=== PATIENT | female | born 1960 | race American Indian/Alaskan Native ===

== ENCOUNTER 2017-09-27 13:55 | Emergency (ER) | payer SELFPAY ==
[2017-09-27 14:11] VITALS: BMI 26.6
[2017-09-27 14:14] VITALS: BP 156/99; PULSE 110; RESP 18; TEMP 98.9; O2SAT 100
--- NOTE | 2017-09-27 14:43 | ED PDOC ---
Arrival/HPI - General Chief Complaint: ENT Problem Time Seen by Provider: 09/27/17 14:30 Historian: Patient - History of Present Illness Narrative History of Present Illness (Text): 09/27/17 Thuy Guevara is a 57 year old female, who presents to the emergency department complaining of sinus congestion for the past four days. Patient denies fever, chest pain, shortness of breath, or cough. No other complaints were made. Time/Duration: < week (4 days) Symptom Onset: Sudden Symptom Course: Unchanged Past Medical History - Provider Review Nursing Documentation Reviewed: Yes - Infectious Disease Hx of Infectious Diseases: None - Reproductive Menopause: No - Psychiatric Hx Substance Use: No - Anesthesia Hx Anesthesia: No Family/Social History - Physician Review Nursing Documentation Reviewed: Yes Family/Social History: Unknown Family HX Smoking Status: Unknown If Ever Smoked Hx Alcohol Use: No Hx Substance Use: No Allergies/Home Meds Allergies/Adverse Reactions: Allergies Sulfa (Sulfonamide Antibiotics) Allergy (Verified 09/27/17 14:14) RASH Review of Systems - Physician Review All systems were reviewed & negative as marked: Yes - Review of Systems Constitutional: absent: Fevers ENT: Sinus Congestion Respiratory: absent: SOB, Cough Cardiovascular: absent: Chest Pain Physical Exam Vital Signs Reviewed: Yes Vital Signs Temp Pulse Resp BP Pulse Ox 09/27/17 14:10 98.9 F 110 H 18 156/99 H 100 09/27/17 13:55 98.9 F 110 H 18 100 Temperature: Afebrile Blood Pressure: Normal Pulse: Tachycardic Respiratory Rate: Normal Appearance: Positive for: Well-Appearing, Non-Toxic, Comfortable Pain Distress: None Mental Status: Positive for: Alert and Oriented X 3 - Systems Exam Head: Present: Atraumatic, Normocephalic Pupils: Present: PERRL Extroacular Muscles: Present: EOMI Conjunctiva: Present: Normal Mouth: Present: Other (bilateral maxillofacial tenderness) Respiratory/Chest: Present: Clear to Auscultation, Good Air Exchange. No: Respiratory Distress, Accessory Muscle Use Cardiovascular: Present: Regular Rate and Rhythm, Normal S1, S2. No: Murmurs Abdomen: Present: Normal Bowel Sounds. No: Tenderness, Distention, Peritoneal Signs Neurological: Present: GCS=15, CN II-XII Intact, Speech Normal Skin: Present: Warm, Dry, Normal Color. No: Rashes Psychiatric: Present: Alert, Oriented x 3, Normal Insight, Normal Concentration Medical Decision Making ED Course and Treatment: 09/27/17 Impression: 57 year old female with bilateral maxillofacial tenderness. Plan: -- Reassess and disposition Progress Notes: Plan is to discharge patient home and have her follow up with PMD. - Scribe Statement The provider has reviewed the documentation as recorded by the Charlotteibe Minda Orozco Provider Scribe Attestation: All medical record entries made by the Scribe were at my direction and personally dictated by me. I have reviewed the chart and agree that the record accurately reflects my personal performance of the history, physical exam, medical decision making, and the department course for this patient. I have also personally directed, reviewed, and agree with the discharge instructions and disposition. Disposition/Present on Arrival - Present on Arrival Any Indicators Present on Arrival: No History of DVT/PE: No History of Uncontrolled Diabetes: No Urinary Catheter: No History of Decub. Ulcer: No History Surgical Site Infection Following: None - Disposition Have Diagnosis and Disposition been Completed?: Yes Diagnosis: Sinusitis Disposition: HOME/ ROUTINE Disposition Time: 14:25 Condition: GOOD Discharge Instructions (ExitCare): Sinusitis (ED) Additional Instructions: Thank you for letting us take care of you today. The emergency medical care you received today was directed at your acute symptoms. If you were prescribed any medication, please fill it and take as directed. It may take several days for your symptoms to resolve. Return to the Emergency Department if your symptoms worsen, do not improve, or if you have any other problems. Please contact your doctor or call one of the physicians/clinics you have been referred to that are listed on the Patient Visit Information form that is included in your discharge packet. Bring any paperwork you were given at discharge with you along with any medications you are taking to your follow up visit. Our treatment cannot replace ongoing medical care by a primary care provider (PCP) outside of the emergency department. Thank you for allowing the [facility] team to be part of your care today. Follow up with the clinic in 5-7 days for re-evaluation and further management. Prescriptions: Amoxicillin/Clavulanate [Augmentin 875 MG-125 MG] 1 tab PO Q12 #14 tab Fluticasone Propionate [Flonase] 1 spr NS BID #1 spr Referrals: [facility] [Outside] - Follow up with primary [facility] [Outside] - Follow up with primary Forms: [employer] (Turkmen)
== END 2017-09-27 14:58 | disposition home or self-care (01) ==
LOC: ED 13:55
DX: J32.9 Chronic sinusitis, unspecified (principal)

== ENCOUNTER 2017-11-19 17:24 | Emergency (ER) | payer SELFPAY ==
[2017-11-19 17:25] VITALS: BMI 26.6
[2017-11-19 17:39] VITALS: RESP 18
--- NOTE | 2017-11-19 18:41 | ED PDOC ---
Arrival/HPI - General Chief Complaint: ENT Problem Time Seen by Provider: 11/19/17 17:58 Historian: Patient - History of Present Illness Narrative History of Present Illness (Text): 11/19/17 18:48 57yr old female presents today with 1-2 week history of nasal congestion, sore throat and sinus pressure. pt states she usually gets sinusitis around this time of year. Patient denies chest pain or shortness of breath. Denies fevers or chills. Denies nausea vomiting diarrhea constipation. Patient denies dizziness or weakness. Denies urinary symptoms. No medications have been taken for pain at home. No other complaints Time/Duration: > week (1-2 weeks) Symptom Onset: Gradual Symptom Course: Worsening Quality: Aching, Pressure Severity Level: 3 Past Medical History - Provider Review Nursing Documentation Reviewed: Yes - Travel History Have you recently traveled outside [place] w/in the past 3 mons?: No - Infectious Disease Hx of Infectious Diseases: None - Psychiatric Hx Substance Use: No - Anesthesia Hx Anesthesia: No Family/Social History - Physician Review Nursing Documentation Reviewed: Yes Family/Social History: Unknown Family HX Smoking Status: Unknown If Ever Smoked Hx Alcohol Use: No Hx Substance Use: No Allergies/Home Meds Allergies/Adverse Reactions: Allergies Sulfa (Sulfonamide Antibiotics) Allergy (Verified 11/19/17 17:39) RASH Review of Systems - Review of Systems Constitutional: absent: Fatigue, Fevers Respiratory: absent: SOB, Cough Cardiovascular: absent: Chest Pain, Palpitations Gastrointestinal: absent: Abdominal Pain, Constipation, Diarrhea, Nausea, Vomiting Genitourinary Female: absent: Dysuria Musculoskeletal: absent: Arthralgias Skin: absent: Rash, Pruritis Neurological: absent: Headache, Dizziness Psychiatric: absent: Anxiety, Depression Physical Exam Vital Signs Reviewed: Yes Vital Signs Temp Pulse Resp BP Pulse Ox 11/19/17 17:35 98.1 F 87 18 145/84 98 Temperature: Afebrile Blood Pressure: Normal Pulse: Regular Respiratory Rate: Normal Appearance: Positive for: Well-Appearing, Non-Toxic, Comfortable Pain Distress: None Mental Status: Positive for: Alert and Oriented X 3 - Systems Exam Head: Present: Atraumatic, Tenderness (+ ttp over bilateral maxillary sinuses and left frontal sinus. ) Pupils: Present: PERRL Extroacular Muscles: Present: EOMI Conjunctiva: Present: Normal Ears: Present: Normal, NORMAL TM Mouth: Present: Moist Mucous Membranes Pharnyx: Present: Normal. No: ERYTHEMA, EXUDATE, TONSILS ENLARGED, Peritonsilar Swelling, Uvular Deviation, Muffled/Hoarse Voice Nose (External): Present: Atraumatic Nose (Internal): Present: No Active Bleeding, Moist, Edematous, Clear Mucous. No: Purulent Mucous, Septal Deviation, Septal Hematoma, Epistaxis Neck: Present: Normal Range of Motion, Trachea Midline. No: Lymphadenopathy Respiratory/Chest: Present: Clear to Auscultation. No: Wheezes, Retracting, Rhonchi, Tachypneic Cardiovascular: Present: Regular Rate and Rhythm Neurological: Present: GCS=15 Skin: Present: Warm, Dry, Normal Color. No: Rashes Psychiatric: Present: Alert, Oriented x 3 Medical Decision Making ED Course and Treatment: 11/19/17 18:52 Patient is nontoxic well-appearing in no distress. Vital signs are stable. Patient with frontal sinus and maxillary tenderness greatest on the left. Patient states that Zithromax and Augmentin do not work for her. Doxycycline given by mouth I advised follow up with primary care physician within the next 2 days. Advised follow-up with the ENT specialist. I advised increase fluids and return if symptoms worsen persist or if new symptoms develop. Patient verbalizes understanding of discharge instructions and need for immediate followup. all aspects of this case were discussed the attending of record. IMPRESSION; sinusitis Motrin one tablet every 6 hours as needed for pain Doxycycline 1 tablet twice daily 7 days. Flonase 2 sprays each nostril once daily Increase fluids Followup with primary care physician the next 2 days Follow-up with the ENT specialist within the next 2 days Return if symptoms worsen persist or if new symptoms develop - Medication Orders Current Medication Orders: Discontinued Medications Doxycycline Hyclate (Doryx) 100 mg PO STAT STA PRN Reason: Protocol Stop: 11/19/17 18:01 Last Admin: 11/19/17 18:22 Dose: 100 mg Disposition/Present on Arrival - Present on Arrival Any Indicators Present on Arrival: No History of DVT/PE: No History of Uncontrolled Diabetes: No Urinary Catheter: No History of Decub. Ulcer: No History Surgical Site Infection Following: None - Disposition Have Diagnosis and Disposition been Completed?: Yes Diagnosis: Sinusitis Disposition: HOME/ ROUTINE Disposition Time: 18:38 Patient Plan: Discharge Patient Problems: Current Active Problems Problem Status Onset Sinusitis Acute Condition: GOOD Discharge Instructions (ExitCare): Sinusitis (ED) Additional Instructions: Motrin one tablet every 6 hours as needed for pain Doxycycline 1 tablet twice daily 7 days. Flonase 2 sprays each nostril once daily Increase fluids Followup with primary care physician the next 2 days Follow-up with the ENT specialist within the next 2 days Return if symptoms worsen persist or if new symptoms develop Prescriptions: Doxycycline Hyclate 100 mg PO BID #14 capsule Fluticasone Nasal [Flonase] 2 spr NS DAILY #1 spr Ibuprofen [Motrin] 600 mg PO Q6H PRN #20 tab PRN Reason: pain/fever reduction Referrals: Uri Soria DO [Staff Provider] - Follow up with primary Dheeraj Cullen DO [Staff Provider] - Follow up with primary Forms: [employer] (Croatian), WORK NOTE
[2017-11-19 18:52] VITALS: BP 139/86; PULSE 82; TEMP 98; O2SAT 100
== END 2017-11-19 18:51 | disposition home or self-care (01) ==
LOC: ED 17:24
DX: J32.9 Chronic sinusitis, unspecified (principal)

== ENCOUNTER 2017-11-29 18:44 | Emergency (ER) | payer SELFPAY ==
[2017-11-29 18:44] VITALS: BMI 26.6
[2017-11-29 18:58] VITALS: RESP 19; TEMP 98.1
--- NOTE | 2017-11-29 19:56 | ED PDOC ---
Arrival/HPI - General Chief Complaint: ENT Problem Time Seen by Provider: 11/29/17 19:27 Historian: Patient - History of Present Illness Narrative History of Present Illness (Text): 11/29/17 20:00 A 57 year old female, whose past medical history includes sinusitis, presents to the emergency department for evaluation of sinus congestion and nasal yellowish/greenish discharge. Patient reports symptoms are consistent with sinusitis and normally takes Debromisin when having this infection. Patient denies any fever, chills, shortness of breath, chest pain, headache, or any other complaints. No PMD Past Medical History - Provider Review Nursing Documentation Reviewed: Yes - Infectious Disease Hx of Infectious Diseases: None - Cardiac Hx Cardiac Disorders: No - Pulmonary Hx Respiratory Disorders: No - Neurological Hx Neurological Disorder: No - HEENT Hx HEENT Disorder: No - Renal Hx Renal Disorder: No - Endocrine/Metabolic Hx Endocrine Disorders: No - Hematological/Oncological Hx Blood Disorders: No - Integumentary Hx Dermatological Disorder: No - Musculoskeletal/Rheumatological Hx Musculoskeletal Disorders: No - Gastrointestinal Hx Gastrointestinal Disorders: No - Genitourinary/Gynecological Hx Genitourinary Disorders: No - Psychiatric Hx Psychophysiologic Disorder: No Hx Substance Use: No - Anesthesia Hx Anesthesia: No Family/Social History - Physician Review Nursing Documentation Reviewed: Yes Family/Social History: No Known Family HX Smoking Status: Never Smoked Hx Alcohol Use: No Hx Substance Use: No Allergies/Home Meds Allergies/Adverse Reactions: Allergies Sulfa (Sulfonamide Antibiotics) Allergy (Verified 11/29/17 18:52) RASH Review of Systems - Physician Review All systems were reviewed & negative as marked: Yes - Review of Systems Constitutional: absent: Fevers, Night Sweats ENT: Rhinorrhea (yellowish-greenish discharge), Other (nasal congestion) Respiratory: absent: SOB Cardiovascular: absent: Chest Pain Neurological: absent: Headache Physical Exam Vital Signs Reviewed: Yes Vital Signs Temp Pulse Resp BP Pulse Ox 11/29/17 18:53 98.1 F 107 H 19 143/74 95 Temperature: Afebrile Blood Pressure: Normal Pulse: Regular Respiratory Rate: Normal Appearance: Positive for: Well-Appearing Pain Distress: None Mental Status: Positive for: Alert and Oriented X 3 - Systems Exam Head: Present: Atraumatic, Normocephalic Pupils: Present: PERRL Extroacular Muscles: Present: EOMI Conjunctiva: Present: Normal Mouth: Present: Moist Mucous Membranes Nose (Internal): Present: Rhinorrhea (yellowish nasal discharge), Other (nasal congestion; some frontal sinus tenderness) Neck: Present: Normal Range of Motion Respiratory/Chest: Present: Clear to Auscultation, Good Air Exchange. No: Respiratory Distress, Accessory Muscle Use Cardiovascular: Present: Regular Rate and Rhythm, Normal S1, S2. No: Murmurs Abdomen: Present: Normal Bowel Sounds. No: Tenderness, Distention, Peritoneal Signs Back: Present: Normal Inspection Upper Extremity: Present: Normal Inspection. No: Cyanosis, Edema Lower Extremity: Present: Normal Inspection. No: Edema Neurological: Present: GCS=15, CN II-XII Intact, Speech Normal, Other (no focal deficits) Skin: Present: Warm, Dry, Normal Color. No: Rashes Psychiatric: Present: Alert, Oriented x 3, Normal Insight, Normal Concentration Medical Decision Making ED Course and Treatment: 11/29/17 20:04 Impression: 57 year old female with nasal congestion and yellowish/greenish discharge. Physical exam shows patient has nasal congestion with yellowish nasal discharge, with some frontal sinus tenderness. Plan: -- Doryx -- Sudafed Tab -- Reassess and disposition Progress Notes: - Medication Orders Current Medication Orders: Pseudoephedrine HCl (Sudafed Tab) 30 mg PO ONCE ONE Stop: 11/30/17 20:03 Discontinued Medications Doxycycline Hyclate (Doryx) 100 mg PO STAT STA PRN Reason: Protocol Stop: 11/29/17 20:01 - Scribe Statement The provider has reviewed the documentation as recorded by the Dontrell Banuelos Provider Scribe Attestation: All medical record entries made by the Charlotteibash were at my direction and personally dictated by me. I have reviewed the chart and agree that the record accurately reflects my personal performance of the history, physical exam, medical decision making, and the department course for this patient. I have also personally directed, reviewed, and agree with the discharge instructions and disposition. Disposition/Present on Arrival - Present on Arrival Any Indicators Present on Arrival: No History of DVT/PE: No History of Uncontrolled Diabetes: No Urinary Catheter: No History of Decub. Ulcer: No History Surgical Site Infection Following: None - Disposition Have Diagnosis and Disposition been Completed?: Yes Diagnosis: Sinusitis Disposition: HOME/ ROUTINE Disposition Time: :57 Patient Plan: Discharge Patient Problems: Current Active Problems Problem Status Onset Sinusitis Acute Condition: GOOD Discharge Instructions (ExitCare): Sinusitis (ED) Additional Instructions: Take meds as prescribed/follow up with your doctor this week Prescriptions: Fexofenadine/Pseudoephedrine [Tanya-D 12 Hour Tablet] 1 each PO BID PRN #24 tab.er.12h PRN Reason: Nasal Congestion Doxycycline Hyclate 100 mg PO BID #20 capsule Forms: [employer] (Luxembourgish)
[2017-11-30 02:37] VITALS: BP 135/73; PULSE 84; O2SAT 97
== END 2017-11-29 20:19 | disposition home or self-care (01) ==
LOC: ED 18:44
DX: J32.9 Chronic sinusitis, unspecified (principal)

== ENCOUNTER 2017-12-16 20:28 | Emergency (ER) | payer SELFPAY ==
[2017-12-16 23:09] VITALS: BMI 28.1
[2017-12-16 23:15] VITALS: BP 174/74; PULSE 90; RESP 20; TEMP 99.6; O2SAT 97
--- NOTE | 2017-12-17 00:37 | ED PDOC ---
Arrival/HPI - General Chief Complaint: ENT Problem Time Seen by Provider: 12/17/17 00:33 Historian: Patient EM Caveat: Acuity of Condition - History of Present Illness Narrative History of Present Illness (Text): 12/17/17 00:33 Pt is a 57 yo F with sinus pain and congestion x 2 days along with post nasal drip and cough. Pt reports frequent sinusitis and usually requires antibiotics. Has yellow nasal discharge. Denies sob, cp, n/v/d, MARIN, neck or back pain. States sick contacts and did not receive the flu vaccine this year. 12/17/17 00:36 Time/Duration: Prior to Arrival Symptom Onset: Gradual Symptom Course: Worsening Quality: Pressure, Tightness Severity Level: 4 Activities at Onset: Rest, Sleeping Context: Sitting, Standing, Walking Past Medical History - Provider Review Nursing Documentation Reviewed: Yes - Travel History Have you recently traveled outside [place] w/in the past 3 mons?: No - Infectious Disease Hx of Infectious Diseases: None - Reproductive Menopause: No - Cardiac Hx Cardiac Disorders: No - Pulmonary Hx Respiratory Disorders: No - Neurological Hx Neurological Disorder: No - HEENT Hx HEENT Disorder: No - Renal Hx Renal Disorder: No - Endocrine/Metabolic Hx Endocrine Disorders: No - Hematological/Oncological Hx Blood Disorders: No - Integumentary Hx Dermatological Disorder: No - Musculoskeletal/Rheumatological Hx Musculoskeletal Disorders: No - Gastrointestinal Hx Gastrointestinal Disorders: No - Genitourinary/Gynecological Hx Genitourinary Disorders: No - Psychiatric Hx Psychophysiologic Disorder: No Hx Substance Use: No - Anesthesia Hx Anesthesia: No Family/Social History - Physician Review Nursing Documentation Reviewed: Yes Family/Social History: Unknown Family HX Smoking Status: Never Smoked Hx Alcohol Use: No Hx Substance Use: No Allergies/Home Meds Allergies/Adverse Reactions: Allergies Sulfa (Sulfonamide Antibiotics) Allergy (Verified 11/29/17 18:52) RASH Review of Systems - Review of Systems Constitutional: Normal Eyes: Normal ENT: Normal, Rhinorrhea, Sinus Congestion Respiratory: Cough, Sputum Cardiovascular: Normal Gastrointestinal: Normal Genitourinary Female: Normal Musculoskeletal: Normal Skin: Normal Neurological: Normal Endocrine: Normal Hemo/Lymphatic: Normal Psychiatric: Normal Physical Exam Vital Signs Reviewed: Yes Vital Signs Temp Pulse Resp BP Pulse Ox 12/16/17 23:09 99.6 F 90 20 174/74 H 97 Temperature: Afebrile Blood Pressure: Normal Pulse: Regular Respiratory Rate: Normal Appearance: Positive for: Non-Toxic, Comfortable Pain Distress: Mild Mental Status: Positive for: Alert and Oriented X 3 - Systems Exam Head: Present: Atraumatic, Normocephalic Pupils: Present: PERRL Extroacular Muscles: Present: EOMI Conjunctiva: Present: Injected Ears: Present: Normal Mouth: Present: Moist Mucous Membranes Pharnyx: Present: ERYTHEMA Nose (Internal): Present: Rhinorrhea, Purulent Mucous, Other (maxillary and frontal sinus pain on palpation) Neck: Present: Normal Range of Motion Respiratory/Chest: Present: Clear to Auscultation, Good Air Exchange. No: Respiratory Distress, Accessory Muscle Use Cardiovascular: Present: Regular Rate and Rhythm, Normal S1, S2. No: Murmurs Abdomen: Present: Normal Bowel Sounds. No: Tenderness, Distention, Peritoneal Signs Back: Present: Normal Inspection Upper Extremity: Present: Normal Inspection. No: Cyanosis, Edema Lower Extremity: Present: Normal Inspection. No: Edema Neurological: Present: GCS=15, CN II-XII Intact, Speech Normal Skin: Present: Warm, Dry, Normal Color. No: Rashes Psychiatric: Present: Alert, Oriented x 3, Normal Insight, Normal Concentration Medical Decision Making ED Course and Treatment: 12/17/17 00:37 Impression Pt is a 57 yo F with sinus pain and congestion x 2 days along with post nasal drip and cough. URI and sinusitis as there is sinus point tenderness on palpation, nasal discharge and mild cough but lungs CTAB Plan and Progress Note Levaquin 500mg Q12 x 7 days; pt states that Augmentin and Azithromycin do not work well Nasal saline spray to be used frequently Advised to use fluticasone nasal spray to reduce inflammation Dispo home and f/u with PMD in next 2 days Disposition/Present on Arrival - Present on Arrival Any Indicators Present on Arrival: Yes History of DVT/PE: No History of Uncontrolled Diabetes: No Urinary Catheter: No History of Decub. Ulcer: No History Surgical Site Infection Following: None - Disposition Have Diagnosis and Disposition been Completed?: Yes Diagnosis: URI (upper respiratory infection), Sinusitis Disposition: HOME/ ROUTINE Disposition Time: 00:43 Patient Plan: Discharge Condition: STABLE Discharge Instructions (ExitCare): Levofloxacin (By mouth), Sinusitis (ED) Additional Instructions: Please medication as directed. Drink plenty of fluids and get lots of rest. Follow up with your Primary doctor in the next 5 days. If you experience alarming symptoms such as chest pain, shortness of breath and fever, return to the ER for evaluation. All the best in your recovery! Prescriptions: Levofloxacin [Levaquin] 500 mg PO DAILY 7 Days #7 tablet Sodium Chloride/Aloe Vera [Grant Saline Nasal Gel [place]] 22 ml NS Q2 5 Days #2 spray Referrals: [facility] Law Sanchez, [Non-Staff] - Follow up with primary Forms: [employer] (Turkmen), WORK NOTE
== END 2017-12-17 00:57 | disposition home or self-care (01) ==
LOC: ED 20:28
DX: J01.90 Acute sinusitis, unspecified (principal)

== ENCOUNTER 2018-01-08 20:09 | Emergency (ER) | payer MEDICAID, OTHER ==
[2018-01-08 20:10] VITALS: BMI 28.1
[2018-01-08 20:50] VITALS: O2SAT 97
--- NOTE | 2018-01-08 20:57 | ED PDOC ---
Arrival/HPI - General Chief Complaint: ENT Problem Time Seen by Provider: 01/08/18 20:48 Historian: Patient - History of Present Illness Narrative History of Present Illness (Text): 01/08/18 20:50 57 y/o female, pmh including chronic sinusitis, allergic to sulfa, post menopausal, c/o chronic sinusitis symptoms for over many years. Pt. stated that she has nasal congestion and post nasal drip, completed multiple courses of antibiotic including penicillin/fluoroquinolones/tetracycline classes and stated that the symptoms still remain, unable to see the pmd because he is too far for her, no dizziness, no change in vision, no painful movement of the eye, no rash, no numbness or tingling, no other medical or psychological complaints. Past Medical History - Provider Review Nursing Documentation Reviewed: Yes - Infectious Disease Hx of Infectious Diseases: None - Cardiac Hx Cardiac Disorders: No - Pulmonary Hx Respiratory Disorders: No - Neurological Hx Neurological Disorder: No - HEENT Hx HEENT Disorder: Yes Hx Macular Degeneration: Yes - Renal Hx Renal Disorder: No - Endocrine/Metabolic Hx Endocrine Disorders: No - Hematological/Oncological Hx Blood Disorders: No - Integumentary Hx Dermatological Disorder: No - Musculoskeletal/Rheumatological Hx Musculoskeletal Disorders: No - Gastrointestinal Hx Gastrointestinal Disorders: No - Genitourinary/Gynecological Hx Genitourinary Disorders: No - Psychiatric Hx Psychophysiologic Disorder: No Hx Substance Use: No - Anesthesia Hx Anesthesia: No Family/Social History - Physician Review Nursing Documentation Reviewed: Yes Family/Social History: Unknown Family HX Smoking Status: Never Smoked Hx Alcohol Use: No Hx Substance Use: No Allergies/Home Meds Allergies/Adverse Reactions: Allergies Sulfa (Sulfonamide Antibiotics) Allergy (Verified 01/08/18 20:18) RASH Review of Systems - Review of Systems Constitutional: absent: Fatigue, Fevers Eyes: absent: Vision Changes ENT: Rhinorrhea, Sinus Congestion. absent: Hearing Changes Respiratory: absent: SOB, Cough Cardiovascular: absent: Chest Pain Gastrointestinal: absent: Abdominal Pain, Nausea, Vomiting Musculoskeletal: absent: Arthralgias, Back Pain Skin: absent: Rash, Pruritis Neurological: absent: Headache, Dizziness Psychiatric: absent: Anxiety, Depression, Suicidal Ideation Physical Exam Vital Signs Reviewed: Yes Vital Signs Temp Pulse Resp BP Pulse Ox 01/08/18 20:21 98.5 F 89 16 138/73 97 Temperature: Afebrile Blood Pressure: Normal Pulse: Regular Respiratory Rate: Normal Appearance: Positive for: Well-Appearing, Non-Toxic, Comfortable Pain Distress: None Mental Status: Positive for: Alert and Oriented X 3 - Systems Exam Head: Present: Atraumatic, Normocephalic, Other (mild rt. sinus maxillary tenderness) Pupils: Present: PERRL Extroacular Muscles: Present: EOMI Conjunctiva: Present: Normal Ears: Present: NORMAL TM, Normal Canal Mouth: Present: Moist Mucous Membranes Pharnyx: No: ERYTHEMA, EXUDATE, TONSILS ENLARGED Neck: Present: Normal Range of Motion Respiratory/Chest: Present: Clear to Auscultation, Good Air Exchange. No: Respiratory Distress, Accessory Muscle Use Cardiovascular: Present: Regular Rate and Rhythm, Normal S1, S2. No: Murmurs Abdomen: Present: Normal Bowel Sounds. No: Tenderness, Distention, Peritoneal Signs, Rebound, Guarding Back: Present: Normal Inspection Upper Extremity: Present: Normal Inspection. No: Cyanosis, Edema Lower Extremity: Present: Normal Inspection. No: Edema Neurological: Present: GCS=15, CN II-XII Intact, Speech Normal, Motor Func Grossly Intact, Gait Normal, Memory Normal Skin: Present: Warm, Dry, Normal Color. No: Rashes Psychiatric: Present: Alert, Oriented x 3, Normal Insight, Normal Concentration Medical Decision Making ED Course and Treatment: 01/08/18 21:01 -Benadryl IM -CT sinus as the patient insisting on the oral antibiotic as she completed 3 different classes penicillin/fluoroquinolones/tetracycline -observe and reassess 01/08/18 22:00 -Pt. stated that she is claustrophobic, request medication, xanax 0.5mg po ordered and stated that she is not driving home, calling her family member to pick her up upon discharge. 01/08/18 23:48 -Pt. completed the CT with no complication and tolerated well. -CT sinus show There is minimal mucoperiosteal thickening in the bases of the maxillary sinuses right greater than left. There is minimal mucoperiosteal thickening in ethmoid sinuses. -Pt. stated that the zpack works well for her -Pt. stated that she feels better now. Zithromax and prednisone ordered -Discharge home with zithromax, claritin, prednisone, naproxen, bed rest, follow up with your own pmd and ENT within 2 days, return to the ER for any new or worsening signs or symptoms. - RAD Interpretation Radiology Orders: 01/08/18 20:58 SINUSES W/O CONTRAST [CT] Stat Sinuses: There is minimal mucoperiosteal thickening in the bases of the maxillary sinuses right greater than left. There is minimal mucoperiosteal thickening in ethmoid sinuses. Frontal and sphenoid sinuses are unremarkable. There are no air-fluid levels. Ostiomeatal complexes are patent bilaterally. Nasal cavity: Unremarkable Ears and mastoids: Middle ears and mastoids are unremarkable. Bones/joints: unremarkable Soft tissues: unremarkable Orbits: Orbital contents are unremarkable. Dental: Streak artifact from dental fillings degrades image quality. Brain: No focal abnormalities are seen in visualized portion of the brain. IMPRESSION: No acute sinusitis Thank you for allowing us to participate in the care of your patient. Dictated and Authenticated by: Cecilia Dennis MD 01/08/2018 11:47 PM Eastern Time ([place] & [place]) Casing Tester: Radiologist - Medication Orders Current Medication Orders: Discontinued Medications Alprazolam (Xanax) 0.5 mg PO STAT STA PRN Reason: Protocol Stop: 01/08/18 22:01 Last Admin: 01/08/18 22:19 Dose: 0.5 mg Diphenhydramine HCl (Benadryl) 50 mg IM STAT STA Stop: 01/08/18 20:59 Last Admin: 01/08/18 22:20 Dose: 50 mg IM Administration Charges Document 01/08/18 22:20 GMD (Rec: 01/08/18 22:20 GMD [id number]) Injection Site MAR Injection Site Left Deltoid Charges for Administration # of IM Administrations 1 - PA / COREMAKER BENCH / Resident Statement MD/DO has reviewed & agrees with the documentation as recorded. Disposition/Present on Arrival - Present on Arrival Any Indicators Present on Arrival: No History of DVT/PE: No History of Uncontrolled Diabetes: No Urinary Catheter: No History of Decub. Ulcer: No History Surgical Site Infection Following: None - Disposition Have Diagnosis and Disposition been Completed?: Yes Diagnosis: Chronic sinusitis, unspecified Disposition: HOME/ ROUTINE Disposition Time: 21:01 Patient Plan: Discharge Patient Problems: Current Active Problems Problem Status Onset Chronic sinusitis, unspecified Acute Condition: IMPROVED Discharge Instructions (ExitCare): Chronic Sinusitis Print Language: KAZAKH Additional Instructions: -Discharge home with zithromax, claritin, prednisone, naproxen, bed rest, follow up with your own pmd and ENT within 2 days, return to the ER for any new or worsening signs or symptoms. Prescriptions: Azithromycin [Zithromax] 250 mg PO DAILY #4 tab Loratadine [Claritin] 10 mg PO DAILY #10 tab Naproxen 500 mg PO BID PRN #24 tablet.dr RODRIGUEZ Reason: Other Prednisone 50 mg PO DAILY #4 tab Referrals: PCP,SATINDER [Primary Care Provider] - Follow up with primary Uri Soria DO [Staff Provider] - Follow up with primary Forms: WORK NOTE
[2018-01-08] MEDS ORDERED: DiphenhydrAMINE 50 mg/ml Inj IM STA (20:58)
--- NOTE | 2018-01-08 23:47 | CT ---
EXAM: CT Maxillofacial Sinuses Without Intravenous Contrast EXAM DATE/TIME: 01/08/2018 8:58 PM CLINICAL HISTORY: 57 years old, female; Signs and symptoms; Sinusitis; Type not specified; Additional info: Sinus congestion for over 6 months, sinusitis? TECHNIQUE: Computed tomography images of the maxillofacial sinuses without intravenous contrast. All CT scans at this facility use one or more dose reduction techniques, viz.: automated exposure control; ma/kV adjustment per patient size (including targeted exams where dose is matched to indication; i.e. head); or iterative reconstruction technique. Coronal and sagittal reformatted images were created and reviewed. COMPARISON: There are no prior studies for comparison. FINDINGS: Sinuses: There is minimal mucoperiosteal thickening in the bases of the maxillary sinuses right greater than left. There is minimal mucoperiosteal thickening in ethmoid sinuses. Frontal and sphenoid sinuses are unremarkable. There are no air-fluid levels. Ostiomeatal complexes are patent bilaterally. Nasal cavity: Unremarkable Ears and mastoids: Middle ears and mastoids are unremarkable. Bones/joints: unremarkable Soft tissues: unremarkable Orbits: Orbital contents are unremarkable. Dental: Streak artifact from dental fillings degrades image quality. Brain: No focal abnormalities are seen in visualized portion of the brain. IMPRESSION: No acute sinusitis
[2018-01-08 23:58] VITALS: BP 142/90; PULSE 77; RESP 19; TEMP 98
== END 2018-01-09 00:11 | disposition home or self-care (01) ==
LOC: ED 20:09
DX: J32.9 Chronic sinusitis, unspecified (principal)
CPT/HCPCS: 70486; 96372; 99284; J1200

== ENCOUNTER 2018-01-23 18:32 | Emergency (ER) | payer MEDICAID ==
[2018-01-23 18:41] VITALS: BMI 37.0
[2018-01-23 18:45] VITALS: RESP 18; TEMP 98.7
[2018-01-23] MEDS ORDERED: Amoxicillin-Clav 875-125 mg Tab PO STA (21:34)
--- NOTE | 2018-01-23 21:35 | ED PDOC ---
Arrival/HPI - General Chief Complaint: ENT Problem Time Seen by Provider: 01/23/18 19:37 Historian: Patient - History of Present Illness Narrative History of Present Illness (Text): 01/23/18 21:35 57yr old female presents today with chronic sore throat, nasal congestion and post nasal drip. pt states she has been dealing with this problem for years. pt states the symptoms come and go. pt states symptoms improve after abx and then return .pt denies fever/chills. denies dizziness or weakness. pt denies difficulty breathing. denies difficulty swallowing. no other complaints. Symptom Onset: Gradual Symptom Course: Intermittent Quality: Aching Severity Level: 3 Past Medical History - Provider Review Nursing Documentation Reviewed: Yes - Travel History Have you recently traveled outside [place] w/in the past 3 mons?: No - Infectious Disease Hx of Infectious Diseases: None - Reproductive Menopause: Yes - Cardiac Hx Cardiac Disorders: No - Pulmonary Hx Respiratory Disorders: No - Neurological Hx Neurological Disorder: No - HEENT Hx HEENT Disorder: No - Renal Hx Renal Disorder: No - Endocrine/Metabolic Hx Endocrine Disorders: No - Hematological/Oncological Hx Blood Disorders: No - Integumentary Hx Dermatological Disorder: No - Musculoskeletal/Rheumatological Hx Musculoskeletal Disorders: No - Gastrointestinal Hx Gastrointestinal Disorders: No - Genitourinary/Gynecological Hx Genitourinary Disorders: No - Psychiatric Hx Psychophysiologic Disorder: No Hx Substance Use: No - Anesthesia Hx Anesthesia: No Family/Social History - Physician Review Nursing Documentation Reviewed: Yes Family/Social History: Unknown Family HX Smoking Status: Never Smoked Hx Alcohol Use: No Hx Substance Use: No Allergies/Home Meds Allergies/Adverse Reactions: Allergies Sulfa (Sulfonamide Antibiotics) Allergy (Verified 01/08/18 20:18) RASH Review of Systems - Review of Systems Constitutional: absent: Fatigue, Fevers ENT: Sore Throat, Sinus Congestion Respiratory: absent: SOB, Cough Cardiovascular: absent: Chest Pain, Palpitations Gastrointestinal: absent: Abdominal Pain, Nausea, Vomiting Musculoskeletal: absent: Arthralgias Skin: absent: Rash, Pruritis Neurological: absent: Headache, Dizziness Psychiatric: absent: Anxiety, Depression, Suicidal Ideation Physical Exam Vital Signs Reviewed: Yes Vital Signs Temp Pulse Resp BP Pulse Ox 01/23/18 18:32 98.7 F 89 18 164/92 H 100 Temperature: Afebrile Blood Pressure: Hypertensive Pulse: Regular Respiratory Rate: Normal Appearance: Positive for: Well-Appearing, Non-Toxic, Comfortable Pain Distress: None Mental Status: Positive for: Alert and Oriented X 3 - Systems Exam Head: Present: Atraumatic Extroacular Muscles: Present: EOMI Conjunctiva: Present: Normal Ears: Present: Normal, NORMAL TM Mouth: Present: Moist Mucous Membranes, Normal Lips, Normal Tounge, Normal Teeth. No: Drooling, Trismus Pharnyx: Present: Normal. No: ERYTHEMA, EXUDATE, TONSILS ENLARGED, Peritonsilar Swelling, Uvular Deviation Nose (External): Present: Atraumatic Nose (Internal): Present: Engorged, Clear Mucous. No: Septal Hematoma Neck: Present: Normal Range of Motion, Trachea Midline. No: Meningeal Signs Respiratory/Chest: Present: Clear to Auscultation, Good Air Exchange. No: Respiratory Distress, Accessory Muscle Use Cardiovascular: Present: Regular Rate and Rhythm, Normal S1, S2. No: Murmurs Neurological: Present: GCS=15, Speech Normal Skin: Present: Warm, Dry, Normal Color. No: Rashes Psychiatric: Present: Alert, Oriented x 3 Medical Decision Making ED Course and Treatment: 01/23/18 21:41 Patient is nontoxic well appearing in no distress. Vital signs are stable Tolerating p.o. fluids and solids Motrin 600 mg p.o. augmentin po Decadron 10 mg IM Patient reassessment: Patient feeling better after medications, vital signs stable. Moist mucous membranes. I advised follow up with primary care physician/ent specialist within the next 2 days, advised to increase fluids take medications as prescribed and return if symptoms worsen persist or if new symptoms develop Patient verbalizes understanding of discharge instructions and need for immediate followup. all aspects of this case were discussed the attending of record. IMPRESSION; pharyngitis Motrin every 6 hours as needed for pain/fever reduction Increase fluids Augmentin twice daily 10 days Claritin daily Flonase 2 sprays each nostril once daily Follow up primary care physician within the next 2 days Follow-up with the ENT specialist within the next 2 days Return if symptoms worsen persist or if the symptoms develop: High fevers, increasing pain, dizziness or weakness, inability to swallow, or if any other concerning symptoms develop - Lab Interpretations Lab Results: Lab Results 01/23/18 20:00: Influenza Typ A,B (EIA) Negative for flu a/b 01/23/18 20:00: Grp A Beta Strep Ag Negative Disposition/Present on Arrival - Present on Arrival Any Indicators Present on Arrival: No History of DVT/PE: No History of Uncontrolled Diabetes: No Urinary Catheter: No History of Decub. Ulcer: No History Surgical Site Infection Following: None - Disposition Have Diagnosis and Disposition been Completed?: Yes Diagnosis: Sore throat Disposition: HOME/ ROUTINE Disposition Time: 21:32 Patient Plan: Discharge Patient Problems: Current Active Problems Problem Status Onset Sore throat Acute Condition: GOOD Discharge Instructions (ExitCare): Sore Throat, Adult (DC), Sore Throat in Adults Additional Instructions: Motrin every 6 hours as needed for pain/fever reduction Increase fluids Augmentin twice daily 10 days Claritin daily Flonase 2 sprays each nostril once daily Follow up primary care physician within the next 2 days Follow-up with the ENT specialist within the next 2 days Return if symptoms worsen persist or if the symptoms develop: High fevers, increasing pain, dizziness or weakness, inability to swallow, or if any other concerning symptoms develop Prescriptions: Amoxicillin/Clavulanate [Augmentin 875 MG-125 MG] 1 tab PO BID #20 tab Fluticasone Nasal [Flonase] 2 spr NS DAILY #1 spr Loratadine [Claritin] 10 mg PO DAILY #30 tab Referrals: Blanquita Cruz MD [Staff Provider] - Follow up with primary Uri Soria DO [Staff Provider] - Follow up with primary Forms: [facility] (Green[place]ic), WORK NOTE
[2018-01-23 22:12] VITALS: BP 154/72; PULSE 82; O2SAT 99
== END 2018-01-23 22:10 | disposition home or self-care (01) ==
LOC: ED 18:32
DX: J02.9 Acute pharyngitis, unspecified (principal)
CPT/HCPCS: 87070; 87430; 87804; 96372; 99283; J1100

== ENCOUNTER 2018-02-17 15:16 | Emergency (ER) | payer MEDICAID ==
[2018-02-17 15:33] VITALS: BP 161/87; PULSE 99; RESP 18; TEMP 98.9; O2SAT 98; BMI 28.1
[2018-02-17] MEDS ORDERED: Amoxicillin-Clav 875-125 mg Tab PO STA (15:38)
--- NOTE | 2018-02-17 15:47 | ED PDOC ---
Arrival/HPI - General Time Seen by Provider: 02/17/18 15:21 Historian: Patient - History of Present Illness Narrative History of Present Illness (Text): 02/17/18 15:39 57yo female with no PMhx who present with complaint of nasal congestion and facial pressure. She also report painful lump to her left axillae area. Notes that nasal congestion started a week ago and she noticed painful lump 3days ago. Notes similar symptom a month ago when she was treated for sinusitis. She did not take any medication. Denies cough, fever, chills, dizziness, sick contact, any other complaint. Past Medical History - Provider Review Nursing Documentation Reviewed: Yes - Infectious Disease Hx of Infectious Diseases: None - Cardiac Hx Cardiac Disorders: No - Pulmonary Hx Respiratory Disorders: No - Neurological Hx Neurological Disorder: No - HEENT Hx HEENT Disorder: No - Renal Hx Renal Disorder: No - Endocrine/Metabolic Hx Endocrine Disorders: No - Hematological/Oncological Hx Blood Disorders: No - Integumentary Hx Dermatological Disorder: No - Musculoskeletal/Rheumatological Hx Musculoskeletal Disorders: No - Gastrointestinal Hx Gastrointestinal Disorders: No - Genitourinary/Gynecological Hx Genitourinary Disorders: No - Psychiatric Hx Psychophysiologic Disorder: No Hx Substance Use: No - Anesthesia Hx Anesthesia: No Family/Social History - Physician Review Nursing Documentation Reviewed: Yes Family/Social History: Unknown Family HX Smoking Status: Never Smoked Hx Alcohol Use: No Hx Substance Use: No Allergies/Home Meds Allergies/Adverse Reactions: Allergies codeine Allergy (Verified 02/17/18 15:32) RASH Sulfa (Sulfonamide Antibiotics) Allergy (Verified 01/08/18 20:18) RASH Review of Systems - Physician Review All systems were reviewed & negative as marked: Yes - Review of Systems Constitutional: Normal Eyes: Normal ENT: Sinus Congestion Respiratory: Normal Cardiovascular: Normal Gastrointestinal: Normal Genitourinary Female: Normal Musculoskeletal: Normal Skin: Normal Neurological: Normal Endocrine: Normal Hemo/Lymphatic: Normal Psychiatric: Normal Physical Exam Vital Signs Reviewed: Yes Vital Signs Temp Pulse Resp BP Pulse Ox 02/17/18 15:31 98.9 F 99 H 18 161/87 H 98 Temperature: Afebrile Blood Pressure: Normal Pulse: Regular Respiratory Rate: Normal Appearance: Positive for: Well-Appearing, Non-Toxic, Comfortable Pain Distress: None Mental Status: Positive for: Alert and Oriented X 3 - Systems Exam Head: Present: Atraumatic, Normocephalic Pupils: Present: PERRL Extroacular Muscles: Present: EOMI Conjunctiva: Present: Normal Mouth: Present: Moist Mucous Membranes Nose (Internal): Present: Edematous (B/L nares), Other (Tenderness over the maxilary and frontal sinuses) Neck: Present: Normal Range of Motion Respiratory/Chest: Present: Clear to Auscultation, Good Air Exchange. No: Respiratory Distress, Accessory Muscle Use Cardiovascular: Present: Regular Rate and Rhythm, Normal S1, S2. No: Murmurs Abdomen: No: Tenderness, Distention, Peritoneal Signs Back: Present: Normal Inspection Upper Extremity: Present: Normal Inspection. No: Cyanosis, Edema Lower Extremity: Present: Normal Inspection. No: Edema Neurological: Present: GCS=15, CN II-XII Intact, Speech Normal Skin: Present: Warm, Dry, Normal Color. No: Rashes Lymphatic: Present: Axillary Adenopathy (Right axillae tender and palpable) Psychiatric: Present: Alert, Oriented x 3, Normal Insight, Normal Concentration Medical Decision Making - Medication Orders Current Medication Orders: Amoxicillin/Clavulanate Potassium (Augmentin 875 Mg-125 Mg Tab) 1 tab PO STAT STA PRN Reason: Protocol Stop: 02/17/18 15:39 Disposition/Present on Arrival - Present on Arrival Any Indicators Present on Arrival: No History of DVT/PE: No History of Uncontrolled Diabetes: No Urinary Catheter: No History of Decub. Ulcer: No History Surgical Site Infection Following: None - Disposition Have Diagnosis and Disposition been Completed?: Yes Diagnosis: Axillary lymphadenitis, Acute sinusitis Disposition: HOME/ ROUTINE Disposition Time: 15:50 Patient Plan: Discharge Condition: STABLE Discharge Instructions (ExitCare): Sinusitis, Adult (DC) Additional Instructions: Take medication as directed Return to ED for any new or worsening symptoms Prescriptions: Amoxicillin/Clavulanate [Augmentin 875 MG-125 MG] 1 tab PO BID #20 tab Fluticasone Propionate [Flonase] 1 actuation NS DAILY #1 bottle Loratadine/Pseudoephedrine [Claritin-D 24 Hour Tablet] 1 each PO DAILY #30 tab.er.24h Referrals: Greg Cali MD [Medical Doctor] - Follow up with primary Ismael Cummins DO [Staff Provider] - Follow up with primary
== END 2018-02-17 16:10 | disposition home or self-care (01) ==
LOC: ED 15:16
DX: J01.90 Acute sinusitis, unspecified (principal); I88.9 Nonspecific lymphadenitis, unspecified

== ENCOUNTER 2018-03-08 19:28 | Emergency (ER) | payer SELFPAY ==
[2018-03-08 19:30] VITALS: BMI 28.1
[2018-03-08 19:44] VITALS: BP 157/85; PULSE 88; RESP 17; TEMP 98.6; O2SAT 98
--- NOTE | 2018-03-08 20:02 | ED PDOC ---
Arrival/HPI - General Chief Complaint: ENT Problem Time Seen by Provider: 03/08/18 19:57 Historian: Patient - History of Present Illness Narrative History of Present Illness (Text): 03/08/18 20:00 57yo female with no PMHx w ho present with complaint of nasal congestion and facial pressure. Patient states she was seen here fro same complaint two weeks ago and she finished Augmentin without relieve. She denies fever, chills, any other complaint. Past Medical History - Provider Review Nursing Documentation Reviewed: Yes - Infectious Disease Hx of Infectious Diseases: None - Cardiac Hx Cardiac Disorders: No - Pulmonary Hx Respiratory Disorders: No - Neurological Hx Neurological Disorder: No - HEENT Hx HEENT Disorder: Yes Hx Sinusitis: Yes - Renal Hx Renal Disorder: No - Endocrine/Metabolic Hx Endocrine Disorders: No - Hematological/Oncological Hx Blood Disorders: No - Integumentary Hx Dermatological Disorder: No - Musculoskeletal/Rheumatological Hx Musculoskeletal Disorders: No - Gastrointestinal Hx Gastrointestinal Disorders: No - Genitourinary/Gynecological Hx Genitourinary Disorders: No - Psychiatric Hx Psychophysiologic Disorder: No Hx Substance Use: No - Anesthesia Hx Anesthesia: No Family/Social History - Physician Review Nursing Documentation Reviewed: Yes Family/Social History: Unknown Family HX Smoking Status: Never Smoked Hx Alcohol Use: No Hx Substance Use: No Allergies/Home Meds Allergies/Adverse Reactions: Allergies codeine Allergy (Verified 03/08/18 19:39) RASH Sulfa (Sulfonamide Antibiotics) Allergy (Verified 03/08/18 19:39) RASH Review of Systems - Physician Review All systems were reviewed & negative as marked: Yes - Review of Systems Constitutional: Normal Eyes: Normal ENT: Sinus Congestion Respiratory: Normal Cardiovascular: Normal Gastrointestinal: Normal Genitourinary Female: Normal Musculoskeletal: Normal Skin: Normal Neurological: Normal Endocrine: Normal Hemo/Lymphatic: Normal Psychiatric: Normal Physical Exam Vital Signs Reviewed: Yes Vital Signs Temp Pulse Resp BP Pulse Ox 03/08/18 19:40 98.6 F 88 17 157/85 H 98 Temperature: Afebrile Blood Pressure: Normal Pulse: Regular Respiratory Rate: Normal Appearance: Positive for: Well-Appearing, Non-Toxic, Comfortable Pain Distress: None Mental Status: Positive for: Alert and Oriented X 3 - Systems Exam Head: Present: Atraumatic, Normocephalic Pupils: Present: PERRL Extroacular Muscles: Present: EOMI Conjunctiva: Present: Normal Mouth: Present: Moist Mucous Membranes Nose (Internal): Present: Edematous (B/L nares), Other (Tenderness over the frontal sinus) Neck: Present: Normal Range of Motion Respiratory/Chest: Present: Clear to Auscultation, Good Air Exchange. No: Respiratory Distress, Accessory Muscle Use Cardiovascular: Present: Regular Rate and Rhythm, Normal S1, S2. No: Murmurs Abdomen: No: Tenderness, Distention, Peritoneal Signs Back: Present: Normal Inspection Upper Extremity: Present: Normal Inspection. No: Cyanosis, Edema Lower Extremity: Present: Normal Inspection. No: Edema Neurological: Present: GCS=15, CN II-XII Intact, Speech Normal Skin: Present: Warm, Dry, Normal Color. No: Rashes Psychiatric: Present: Alert, Oriented x 3, Normal Insight, Normal Concentration Medical Decision Making ED Course and Treatment: 03/08/18 23:58 PT in ED for stated history. She requested Doxycycline, states it resolved her sinusitis the last time she received it. she was advised to f/u with ENT again. - Medication Orders Current Medication Orders: Discontinued Medications Doxycycline Hyclate (Doryx) 100 mg PO STAT STA PRN Reason: Protocol Stop: 03/08/18 20:00 Last Admin: 03/08/18 20:20 Dose: 100 mg Loratadine (Claritin) 10 mg PO ONCE ONE Stop: 03/08/18 20:00 Last Admin: 03/08/18 20:20 Dose: 10 mg Prednisone (Prednisone Tab) 40 mg PO STAT STA Stop: 03/08/18 20:04 Last Admin: 03/08/18 20:20 Dose: 40 mg Disposition/Present on Arrival - Present on Arrival Any Indicators Present on Arrival: No History of DVT/PE: No History of Uncontrolled Diabetes: No Urinary Catheter: No History of Decub. Ulcer: No History Surgical Site Infection Following: None - Disposition Have Diagnosis and Disposition been Completed?: Yes Diagnosis: Acute sinusitis Disposition: HOME/ ROUTINE Disposition Time: 20:05 Patient Plan: Discharge Condition: STABLE Discharge Instructions (ExitCare): Sinusitis in Adults Additional Instructions: Follow up with clinic/ENT Return to ED for any new or worsening symptoms Prescriptions: Doxycycline Hyclate [Doryx] 100 mg PO BID #14 cap Loratadine/Pseudoephedrine [Claritin-D 24 Hour Tablet] 1 each PO DAILY #20 tab.er.24h predniSONE [Prednisone] 10 mg PO DAILY #3 tab Referrals: Dwight Bauman DO [Staff Provider] - Follow up with primary Forms: [employer] (Georgian)
== END 2018-03-08 20:30 | disposition home or self-care (01) ==
LOC: ED 19:28
DX: J01.90 Acute sinusitis, unspecified (principal)

== ENCOUNTER 2018-03-31 21:11 | Emergency (ER) | payer SELFPAY ==
[2018-03-31 21:39] VITALS: BMI 27.8
[2018-03-31 21:47] VITALS: BP 134/79; PULSE 95; RESP 18; TEMP 98.1; O2SAT 100
--- NOTE | 2018-03-31 22:23 | ED PDOC ---
Arrival/HPI - General Historian: Patient - History of Present Illness Time/Duration: > month <Mindy Nolan - Last Filed: 04/01/18 00:47> <Dov Salazar - Last Filed: 04/01/18 01:11> - General Chief Complaint: ENT Problem Time Seen by Provider: 03/31/18 21:14 - History of Present Illness Narrative History of Present Illness (Text): 03/31/18 22:45 57yr old female presents today with continued nasal congestion and facial pain. pt states she cant breathe through her nose. pt states she is not getting better. she denies fever/chills. no chest pain or shortness of breath. no vomiting/diarrhea. no dizziness or weakness. pt is requesting antibiotics. pt states she cant follow up with ENT because she doesnt have insurance. no abdominal pain. no other complaints. (Mindy Nolan) Past Medical History - Provider Review Nursing Documentation Reviewed: Yes - Travel History Have you recently traveled outside [place] w/in the past 3 mons?: No - Infectious Disease Hx of Infectious Diseases: None - Cardiac Hx Cardiac Disorders: No - Pulmonary Hx Respiratory Disorders: No - Neurological Hx Neurological Disorder: No - HEENT Hx HEENT Disorder: Yes - Renal Hx Renal Disorder: No - Endocrine/Metabolic Hx Endocrine Disorders: No - Hematological/Oncological Hx Blood Disorders: No - Integumentary Hx Dermatological Disorder: No - Musculoskeletal/Rheumatological Hx Musculoskeletal Disorders: No - Gastrointestinal Hx Gastrointestinal Disorders: No - Genitourinary/Gynecological Hx Genitourinary Disorders: No - Psychiatric Hx Psychophysiologic Disorder: No Hx Substance Use: No - Anesthesia Hx Anesthesia: No <Mindy Nolan - Last Filed: 04/01/18 00:47> Family/Social History - Physician Review Nursing Documentation Reviewed: Yes Family/Social History: Unknown Family HX Smoking Status: Never Smoked Hx Alcohol Use: No Hx Substance Use: No <Mindy Nolan - Last Filed: 04/01/18 00:47> Allergies/Home Meds <Mindy Nolan - Last Filed: 04/01/18 00:47> <Dov Salazar - Last Filed: 04/01/18 01:11> Allergies/Adverse Reactions: Allergies codeine Allergy (Verified 03/31/18 21:39) RASH Sulfa (Sulfonamide Antibiotics) Allergy (Verified 03/31/18 21:39) RASH Review of Systems - Review of Systems Constitutional: absent: Fatigue, Fevers Eyes: absent: Eye Pain ENT: Sinus Congestion, Other (sinus and facial pressure) Respiratory: Normal. absent: SOB, Cough Cardiovascular: Normal. absent: Chest Pain, Palpitations Gastrointestinal: Normal. absent: Abdominal Pain, Nausea, Vomiting Genitourinary Female: Normal. absent: Dysuria, Frequency, Hematuria Musculoskeletal: absent: Arthralgias, Back Pain Skin: absent: Rash, Pruritis Neurological: absent: Headache, Dizziness Psychiatric: absent: Anxiety, Depression <Mindy Nolan - Last Filed: 04/01/18 00:47> Physical Exam Vital Signs Reviewed: Yes Temperature: Afebrile Blood Pressure: Normal Pulse: Regular Respiratory Rate: Normal Appearance: Positive for: Well-Appearing, Non-Toxic, Comfortable Pain Distress: None Mental Status: Positive for: Alert and Oriented X 3 - Systems Exam Head: Present: Atraumatic Pupils: Present: PERRL Extroacular Muscles: Present: EOMI Conjunctiva: Present: Normal Ears: Present: Normal, NORMAL TM Mouth: Present: Moist Mucous Membranes. No: Drooling, Trismus Pharnyx: Present: Normal. No: ERYTHEMA, EXUDATE, TONSILS ENLARGED, Peritonsilar Swelling, Uvular Deviation Nose (External): Present: Atraumatic Nose (Internal): Present: Engorged, Clear Mucous Neck: Present: Normal Range of Motion, Trachea Midline. No: Lymphadenopathy Respiratory/Chest: Present: Clear to Auscultation, Good Air Exchange. No: Respiratory Distress, Accessory Muscle Use Cardiovascular: Present: Regular Rate and Rhythm, Normal S1, S2. No: Murmurs Upper Extremity: Present: Normal ROM Lower Extremity: Present: Normal ROM Neurological: Present: GCS=15, Speech Normal Skin: Present: Warm, Dry, Normal Color. No: Rashes Psychiatric: Present: Alert, Oriented x 3 <Mindy Nolan - Last Filed: 04/01/18 00:47> Vital Signs Temp Pulse Resp BP Pulse Ox 03/31/18 21:46 98.1 F 95 H 18 134/79 100 Medical Decision Making <Mindy Nolan - Last Filed: 04/01/18 00:47> <Dov Salazar - Last Filed: 04/01/18 01:11> ED Course and Treatment: 03/31/18 23:23 Patient is nontoxic well-appearing in no distress. Vital signs are stable. c/o chronic sinusitis pt has had 6 visits to the ER in the past 3 months for same complaints. pt has been unable to f/u with ENT because she doesnt have insurance. pt is non toxic well appearing; no distress. pt refused CT of maxillofacial ; I advised follow up with primary care physician and ENT specialist within the next 2 days. I advised increase fluids and return if symptoms worsen persist or if new symptoms develop. Patient verbalizes understanding of discharge instructions and need for immediate followup. all aspects of this case were discussed the attending of record. IMPRESSION; sinusitis augmentin 1 tablet twice daily x 7 days claritin once daily flonase; 2 sprays each nostril once daily Follow up with the ENT specialist within the next 2 days Follow up with the primary care physician within the next 2 days. Return immediately if symptoms worsen, persist or if new symptoms develop. (Mindy Nolan) - PA / [employer] / Resident Statement / has reviewed & agrees with the documentation as recorded. <Dov Salazar - Last Filed: 04/01/18 01:11> Disposition/Present on Arrival - Present on Arrival Any Indicators Present on Arrival: No History of DVT/PE: No History of Uncontrolled Diabetes: No Urinary Catheter: No History of Decub. Ulcer: No History Surgical Site Infection Following: None - Disposition Have Diagnosis and Disposition been Completed?: Yes Disposition Time: 22:20 Patient Plan: Discharge <Mindy Nolan - Last Filed: 04/01/18 00:47> <Dov Salazar - Last Filed: 04/01/18 01:11> - Disposition Diagnosis: Sinus infection Disposition: HOME/ ROUTINE Condition: GOOD Discharge Instructions (ExitCare): Sinusitis in Adults Additional Instructions: augmentin 1 tablet twice daily x 7 days claritin once daily flonase; 2 sprays each nostril once daily Follow up with the ENT specialist within the next 2 days Follow up with the primary care physician within the next 2 days. Return immediately if symptoms worsen, persist or if new symptoms develop. Prescriptions: Amoxicillin/Clavulanate [Augmentin 875 MG-125 MG] 1 tab PO BID #14 tab Fluticasone Nasal [Flonase] 2 spr NS DAILY #1 spr Loratadine [Claritin] 10 mg PO DAILY #30 tab Referrals: Dwight Bauman DO [Staff Provider] - [place] up with [place] [facility] [place] [facility] [place] - Follow up with primary Forms: [employer] (Barbadian)
== END 2018-03-31 23:00 | disposition home or self-care (01) ==
LOC: ED 21:11
DX: J32.9 Chronic sinusitis, unspecified (principal)

== ENCOUNTER 2018-08-16 17:14 | Emergency (ER) | payer SELFPAY ==
[2018-08-16 17:16] VITALS: BMI 27.8
[2018-08-16 17:52] VITALS: O2SAT 98
--- NOTE | 2018-08-16 18:00 | ED PDOC ---
Arrival/HPI <Neha Carter PA-C - Last Filed: 08/17/18 17:14> - General Historian: Patient - History of Present Illness Narrative History of Present Illness (Text): 08/16/18 17:51 57 y/o female, pmh including sinusitis, allergic to codeine and sulfa, post menopausal, c/o nasal congestion/throat pain and cough x 2 days. Nasal congestion, associated with throat pain, admits dry coughing, feels like usual sinusitis, no night sweat, no chest pain or shortness of breath, no change in vision, no numbness or tingling, no dizziness, no weakness, no slurred speech, no recent traveling, no other medical or psychological complaints. <Sahil Martin - Last Filed: 08/18/18 10:15> - General Time Seen by Provider: 08/16/18 17:48 Past Medical History - Provider Review Nursing Documentation Reviewed: Yes - Infectious Disease Hx of Infectious Diseases: None - Cardiac Hx Cardiac Disorders: No - Pulmonary Hx Respiratory Disorders: No - Neurological Hx Neurological Disorder: No - HEENT Hx HEENT Disorder: Yes - Renal Hx Renal Disorder: No - Endocrine/Metabolic Hx Endocrine Disorders: No - Hematological/Oncological Hx Blood Disorders: No - Integumentary Hx Dermatological Disorder: No - Musculoskeletal/Rheumatological Hx Musculoskeletal Disorders: No - Gastrointestinal Hx Gastrointestinal Disorders: No - Genitourinary/Gynecological Hx Genitourinary Disorders: No - Psychiatric Hx Psychophysiologic Disorder: No Hx Substance Use: No - Anesthesia Hx Anesthesia: No <Sahil Martin - Last Filed: 08/18/18 10:15> Family/Social History - Physician Review Nursing Documentation Reviewed: Yes Family/Social History: Unknown Family HX Smoking Status: Never Smoked Hx Alcohol Use: No Hx Substance Use: No <Sahil Martin - Last Filed: 08/18/18 10:15> Allergies/Home Meds <Neha Carter PA-C - Last Filed: 08/17/18 17:14> <Sahil Martin - Last Filed: 08/18/18 10:15> Allergies/Adverse Reactions: Allergies codeine Allergy (Verified 03/31/18 21:39) RASH Sulfa (Sulfonamide Antibiotics) Allergy (Verified 03/31/18 21:39) RASH Review of Systems - Review of Systems Constitutional: absent: Fatigue, Fevers Eyes: absent: Vision Changes ENT: Sore Throat, Rhinorrhea. absent: Hearing Changes Respiratory: Cough. absent: SOB, Sputum, Wheezing Cardiovascular: absent: Chest Pain Gastrointestinal: absent: Abdominal Pain, Nausea, Vomiting Musculoskeletal: absent: Arthralgias, Back Pain Skin: absent: Rash, Pruritis Neurological: absent: Headache, Dizziness Psychiatric: absent: Anxiety, Depression, Suicidal Ideation <Sahil Martin - Last Filed: 08/18/18 10:15> Physical Exam Vital Signs Temp Pulse Resp BP Pulse Ox 08/16/18 21:01 98 F 78 19 132/82 98 08/16/18 17:47 98.6 F 80 18 131/84 98 <Neha Carter PA-C - Last Filed: 08/17/18 17:14> Vital Signs Reviewed: Yes Temperature: Afebrile Blood Pressure: Normal Pulse: Regular Respiratory Rate: Normal Appearance: Positive for: Well-Appearing, Non-Toxic, Comfortable Pain Distress: Mild Mental Status: Positive for: Alert and Oriented X 3 - Systems Exam Head: Present: Atraumatic, Normocephalic, Other (+ttp on the lt. maxillary sinus region, no facial or periorbital swelling. ) Pupils: Present: PERRL Extroacular Muscles: Present: EOMI Conjunctiva: Present: Normal Ears: Present: NORMAL TM, Normal Canal. No: Erythema Mouth: Present: Moist Mucous Membranes Pharnyx: No: ERYTHEMA, EXUDATE, TONSILS ENLARGED, Uvular Deviation, Soft Palate/Uvular Edema Nose (External): Present: Atraumatic. No: Abrasion, Contusion, Laceration Nose (Internal): Present: Normal Inspection, No Active Bleeding. No: Rhinorrhea, Septal Deviation, Septal Hematoma, Epistaxis Neck: Present: Normal Range of Motion, Trachea Midline. No: Meningeal Signs, MIDLINE TENDERNESS, Paraspinal Tenderness, Lymphadenopathy Respiratory/Chest: Present: Clear to Auscultation, Good Air Exchange. No: Respiratory Distress, Accessory Muscle Use, Wheezes, Decreased Breath Sounds, Rales, Retracting, Rhonchi, Tachypneic, Tender to Palpation Cardiovascular: Present: Regular Rate and Rhythm, Normal S1, S2. No: Murmurs Abdomen: No: Tenderness, Distention, Peritoneal Signs, Rebound, Guarding Back: Present: Normal Inspection Upper Extremity: Present: Normal Inspection. No: Cyanosis, Edema Lower Extremity: Present: Normal Inspection. No: Edema Neurological: Present: GCS=15, CN II-XII Intact, Speech Normal, Motor Func Grossly Intact, Gait Normal, Memory Normal Skin: Present: Warm, Dry, Normal Color. No: Rashes Psychiatric: Present: Alert, Oriented x 3, Normal Insight, Normal Concentration <Sahil Martin - Last Filed: 08/18/18 10:15> Medical Decision Making - RAD Interpretation Radiology Orders: 08/16/18 18:00 CHEST PORTABLE [RAD] Stat - Medication Orders Current Medication Orders: Discontinued Medications Amoxicillin/Clavulanate Potassium (Augmentin 875 Mg-125 Mg Tab) 1 tab PO STAT STA; Protocol Stop: 08/16/18 18:04 Last Admin: 08/16/18 18:57 Dose: 1 tab Diphenhydramine HCl (Benadryl) 50 mg PO STAT STA Stop: 08/16/18 19:13 Last Admin: 08/16/18 20:17 Dose: 50 mg Fluticasone Propionate (Flonase) 1 actuation NS STAT STA Stop: 08/16/18 19:32 Last Admin: 08/16/18 20:26 Dose: 1 spr Ketorolac Tromethamine (Toradol) 60 mg IM STAT STA Stop: 08/16/18 18:01 Last Admin: 08/16/18 18:58 Dose: 60 mg MAR Pain Assessment Document 08/16/18 18:58 LA (Rec: 08/16/18 18:58 LA [id number]) Pain Reassessment Is this a pain reassessment? No Sleep Is patient sleeping during reassessment? No Presence of Pain Presence of Pain Yes Pain Scale Used Protocol: PSCALES Pain Scale Used Numeric IM Administration Charges Document 08/16/18 18:58 LA (Rec: 08/16/18 18:58 LA [id number]) Injection Site MAR Injection Site Right Gluteus Josh Charges for Administration # of IM Administrations 1 <Neha Carter PA-C - Last Filed: 08/17/18 17:14> ED Course and Treatment: 08/16/18 18:02 -toradol/augmentin/benadryl/flonase -Observe and reassess 08/16/18 20:18 -Chest xray Emergency room wet read: show no consolidation/infiltrates. -Pt. feels much better, would discharge home. -Discharge home with flonase, claritin d24, augmentin, motrin, stay hydrated, follow up with your own pmd and ENT within 2 days, return to the ER for any new or worsening signs or symptoms. <Sahil Martin - Last Filed: 08/18/18 10:15> - PA / [employer] / Resident Statement / has reviewed & agrees with the documentation as recorded. <Sahil Martin - Last Filed: 08/18/18 10:15> Disposition/Present on Arrival - Notes Notes (Text): 08/17/18 17:14 CXR : IMPRESSION: Heart size appears top normal. Bilateral hilar prominence. Mild central vascular prominence. Attempted to call the patient and pt's listed next of kin, both numbers are invalid. Will send a certified letter. <Neha Carter PA-C - Last Filed: 08/17/18 17:14> - Present on Arrival Any Indicators Present on Arrival: No History of DVT/PE: No History of Uncontrolled Diabetes: No Urinary Catheter: No History of Decub. Ulcer: No History Surgical Site Infection Following: None - Disposition Have Diagnosis and Disposition been Completed?: Yes Disposition Time: 20:19 Patient Plan: Discharge <Sahil Martin - Last Filed: 08/18/18 10:15> - Disposition Diagnosis: Sinusitis Disposition: HOME/ ROUTINE Condition: IMPROVED Additional Instructions: -Discharge home with flonase, claritin d24, augmentin, motrin, stay hydrated, follow up with your own pmd and ENT within 2 days, return to the ER for any new or worsening signs or symptoms. Prescriptions: Amoxicillin/Clavulanate [Augmentin 875 MG-125 MG] 1 tab PO BID #14 tab Fluticasone Nasal [Flonase] 1 spr NS DAILY #1 spr Ibuprofen [Motrin] 600 mg PO QID PRN #30 tab PRN Reason: Other Loratadine/Pseudoephedrine [Claritin-D 24 Hour Tablet] 1 each PO DAILY #7 tab.er.24h Referrals: Seng Turner DO [Doctor [facility]] - Follow up with primary [facility] [place] [facility] [place] - Follow up with primary Forms: WORK NOTE
[2018-08-16] MEDS ORDERED: Amoxicillin-Clav 875-125 mg Tab PO STA (18:03)
[2018-08-16] MEDS ORDERED: Fluticasone Nasal 50 mcg/Spray NS STA (19:31)
[2018-08-16 21:02] VITALS: BP 132/82; PULSE 78; RESP 19; TEMP 98
--- NOTE | 2018-08-17 10:41 | RAD ---
HISTORY: medical clearance COMPARISON: None available. TECHNIQUE: Chest, one view. FINDINGS: Examination limited by habitus. The patient's chin obscures evaluation of the lung apices, particularly on the left. LUNGS: No focal consolidation. Please note that chest x-ray has limited sensitivity for the detection of pulmonary masses. PLEURA: No significant pleural effusion identified. No definite pneumothorax . CARDIOVASCULAR: Heart size appears top normal. Bilateral hilar prominence. Mild central vascular prominence. OSSEOUS STRUCTURES: No acute osseous abnormality identified. VISUALIZED UPPER ABDOMEN: Unremarkable. OTHER FINDINGS: None. IMPRESSION: Heart size appears top normal. Bilateral hilar prominence. Mild central vascular prominence. Study marked for PA review.
== END 2018-08-16 21:00 | disposition home or self-care (01) ==
LOC: ED 17:14
DX: J32.9 Chronic sinusitis, unspecified (principal)
CPT/HCPCS: 71045; 96372; 99283; J1885

== ENCOUNTER 2018-11-17 17:22 | Emergency (ER) | payer SELFPAY ==
[2018-11-17 17:22] VITALS: BMI 27.8
[2018-11-17 17:32] VITALS: BP 137/84; PULSE 83; RESP 16; TEMP 98.8; O2SAT 99
--- NOTE | 2018-11-17 18:09 | ED PDOC ---
Arrival/HPI - General Chief Complaint: ENT Problem Time Seen by Provider: 11/17/18 17:23 Historian: Patient - History of Present Illness Narrative History of Present Illness (Text): 11/17/18 17:55 58 year old female, whose past medical history includes sinusitis, presents to the emergency department complaining of nasal congestion and sinus pain for the past couple of days. Patient reports she was last on antibiotics a few months ago. She reports she last saw an ENT physician over a year ago and was given only antibiotics. Patient denies any fever, chills, chest pain, shortness of breath, headache, dizziness, or any other complaints. Symptom Onset: Gradual Symptom Course: Unchanged Activities at Onset: Light Context: Home Past Medical History - Provider Review Nursing Documentation Reviewed: Yes - Infectious Disease Hx of Infectious Diseases: None - Reproductive Menopause: Yes - Cardiac Hx Cardiac Disorders: No - Pulmonary Hx Respiratory Disorders: No - Neurological Hx Neurological Disorder: No - HEENT Hx HEENT Disorder: Yes - Renal Hx Renal Disorder: No - Endocrine/Metabolic Hx Endocrine Disorders: No - Hematological/Oncological Hx Blood Disorders: No - Integumentary Hx Dermatological Disorder: No - Musculoskeletal/Rheumatological Hx Musculoskeletal Disorders: No - Gastrointestinal Hx Gastrointestinal Disorders: No - Genitourinary/Gynecological Hx Genitourinary Disorders: No - Psychiatric Hx Psychophysiologic Disorder: No Hx Substance Use: No - Anesthesia Hx Anesthesia: No Family/Social History - Physician Review Nursing Documentation Reviewed: Yes Family/Social History: No Known Family HX Smoking Status: Never Smoked Hx Alcohol Use: No Hx Substance Use: No Allergies/Home Meds Allergies/Adverse Reactions: Allergies codeine Allergy (Verified 03/31/18 21:39) RASH Sulfa (Sulfonamide Antibiotics) Allergy (Verified 03/31/18 21:39) RASH Review of Systems - Physician Review All systems were reviewed & negative as marked: Yes - Review of Systems Constitutional: absent: Fevers, Other (Chills) ENT: Other (nasal congestion and sinus pain) Respiratory: absent: SOB Cardiovascular: absent: Chest Pain Neurological: absent: Headache, Dizziness Physical Exam Vital Signs Reviewed: Yes Vital Signs Temp Pulse Resp BP Pulse Ox 11/17/18 17:29 98.8 F 83 16 137/84 99 Temperature: Afebrile Blood Pressure: Normal Pulse: Regular Respiratory Rate: Normal Appearance: Positive for: Well-Appearing, Non-Toxic, Comfortable Pain Distress: None Mental Status: Positive for: Alert and Oriented X 3 - Systems Exam Head: Present: Atraumatic, Normocephalic, Tenderness (bilateral maxillary sinus tenderness) Pupils: Present: PERRL Extroacular Muscles: Present: EOMI Conjunctiva: Present: Normal Mouth: Present: Moist Mucous Membranes Neck: Present: Normal Range of Motion Respiratory/Chest: Present: Clear to Auscultation, Good Air Exchange. No: Respiratory Distress, Accessory Muscle Use Cardiovascular: Present: Regular Rate and Rhythm, Normal S1, S2. No: Murmurs Abdomen: No: Tenderness, Distention, Peritoneal Signs Neurological: Present: GCS=15, CN II-XII Intact, Speech Normal Skin: Present: Warm, Dry, Normal Color. No: Rashes Psychiatric: Present: Alert, Oriented x 3, Normal Insight, Normal Concentration Medical Decision Making ED Course and Treatment: 11/17/18 17:55 Impression: 58 year old female presents complaining of nasal congestion and sinus pain for the past couple of days. Patient past medical history includes sinusitis. Plan: -- disposition Prior Visits: Notes and results from previous visits were reviewed. Progress Notes: 11/17/18 18:15 Patient is in no acute distress. I have discussed the plan with the patient, who expresses understanding. Patient in agreement with plan to be discharged home with prescription of Augmentin and Flonase. Patient is stable for discharge. Patient was instructed to follow up with physician, or return if symptoms worsen or new concerning symptoms arise. - Scribe Statement The provider has reviewed the documentation as recorded by the Dontrell Keys Provider Scribe Attestation: All medical record entries made by the Dontrell were at my direction and personally dictated by me. I have reviewed the chart and agree that the record accurately reflects my personal performance of the history, physical exam, medical decision making, and the department course for this patient. I have also personally directed, reviewed, and agree with the discharge instructions and disposition. Disposition/Present on Arrival - Present on Arrival Any Indicators Present on Arrival: No History of DVT/PE: No History of Uncontrolled Diabetes: No Urinary Catheter: No History of Decub. Ulcer: No History Surgical Site Infection Following: None - Disposition Have Diagnosis and Disposition been Completed?: Yes Diagnosis: Sinusitis Disposition: HOME/ ROUTINE Disposition Time: 17:50 Condition: GOOD Discharge Instructions (ExitCare): Sinusitis, Adult (DC) Additional Instructions: INGRID BACK, thank you for letting us take care of you today. The emergency medical care you received today was directed at your acute symptoms. If you were prescribed any medication, please fill it and take as directed. It may take several days for your symptoms to resolve. Return to the Emergency Department if your symptoms worsen, do not improve, or if you have any other problems. Please contact your doctor or call one of the physicians/clinics you have been referred to that are listed on the Patient Visit Information form that is included in your discharge packet. Bring any paperwork you were given at discharge with you along with any medications you are taking to your follow up visit. Our treatment cannot replace ongoing medical care by a primary care provider outside of the emergency department. Thank you for allowing the [facility] team to be part of your care today. Follow up with your primary care doctor in 2-3 days for re-evaluation and further management. Prescriptions: Amoxicillin/Clavulanate [Augmentin 875 MG-125 MG] 1 tab PO BID #14 tab Fluticasone Propionate [Flonase] 1 spr NS BID #1 bottle Referrals: [facility], [Non-Staff] - Follow up with primary Forms: [employer] (Yakut)
== END 2018-11-17 18:13 | disposition home or self-care (01) ==
LOC: ED 17:22
DX: J32.9 Chronic sinusitis, unspecified (principal)

== ENCOUNTER 2019-04-02 09:12 | Emergency (ER) | payer SELFPAY ==
[2019-04-02 09:19] VITALS: BP 152/90; PULSE 92; RESP 18; TEMP 98.5; O2SAT 96; BMI 27.3
--- NOTE | 2019-04-02 09:57 | ED PDOC ---
Arrival/HPI - General Chief Complaint: ENT Problem Time Seen by Provider: 04/02/19 09:21 Historian: Patient - History of Present Illness Narrative History of Present Illness (Text): 04/02/19 09:55 58-year-old female presents today with a 3-day history of cough nasal congestion and sore throat. Patient states the cough is nonproductive. Patient states she feels mucus dripping down in the back of the throat. She is complaining of sinus pressure. Denies ear pain. Complaining of burning sensation to the throat. Patient denies dizziness or weakness. No medications were taken at home. No other complaints Past Medical History - Provider Review Nursing Documentation Reviewed: Yes - Travel History Have you recently traveled outside [place] w/in the past 3 mons?: No - Infectious Disease Hx of Infectious Diseases: None - Reproductive Menopause: Yes - Cardiac Hx Cardiac Disorders: No - Pulmonary Hx Respiratory Disorders: No - Neurological Hx Neurological Disorder: No - HEENT Hx HEENT Disorder: Yes - Renal Hx Renal Disorder: No - Endocrine/Metabolic Hx Endocrine Disorders: No - Hematological/Oncological Hx Blood Disorders: No - Integumentary Hx Dermatological Disorder: No - Musculoskeletal/Rheumatological Hx Musculoskeletal Disorders: No - Gastrointestinal Hx Gastrointestinal Disorders: No - Genitourinary/Gynecological Hx Genitourinary Disorders: No - Psychiatric Hx Psychophysiologic Disorder: No Hx Substance Use: No - Anesthesia Hx Anesthesia: No Family/Social History - Physician Review Nursing Documentation Reviewed: Yes Family/Social History: Unknown Family HX Smoking Status: Never Smoked Hx Alcohol Use: No Hx Substance Use: No Allergies/Home Meds Allergies/Adverse Reactions: Allergies codeine Allergy (Verified 04/02/19 09:45) RASH Sulfa (Sulfonamide Antibiotics) Allergy (Verified 04/02/19 09:45) RASH Review of Systems - Review of Systems Constitutional: absent: Fatigue, Fevers ENT: Sore Throat, Sinus Congestion Respiratory: Cough. absent: SOB Cardiovascular: absent: Chest Pain, Palpitations Gastrointestinal: absent: Abdominal Pain Genitourinary Female: absent: Dysuria Musculoskeletal: absent: Arthralgias Skin: absent: Rash, Pruritis Neurological: absent: Headache, Dizziness Psychiatric: absent: Anxiety, Depression Physical Exam Vital Signs Reviewed: Yes Vital Signs Temp Pulse Resp BP Pulse Ox 04/02/19 09:17 98.5 F 92 H 18 152/90 H 96 Temperature: Afebrile Blood Pressure: Hypertensive Pulse: Regular Respiratory Rate: Normal Appearance: Positive for: Well-Appearing, Non-Toxic, Comfortable Pain Distress: None Mental Status: Positive for: Alert and Oriented X 3 - Systems Exam Head: Present: Atraumatic Pupils: Present: PERRL Extroacular Muscles: Present: EOMI Conjunctiva: Present: Normal Ears: Present: Normal, NORMAL TM. No: Erythema, Normal Canal Mouth: Present: Moist Mucous Membranes, Normal Lips, Normal Tounge. No: Drooling, Trismus Pharnyx: Present: Other (+ post nasal drip). No: ERYTHEMA, EXUDATE, TONSILS ENLARGED, Peritonsilar Swelling, Uvular Deviation, Muffled/Hoarse Voice Nose (External): Present: Atraumatic Nose (Internal): Present: Engorged, Clear Mucous. No: Septal Hematoma, Epistaxis Neck: Present: Normal Range of Motion, Trachea Midline. No: Lymphadenopathy Respiratory/Chest: Present: Clear to Auscultation, Good Air Exchange. No: Respiratory Distress, Accessory Muscle Use Cardiovascular: Present: Regular Rate and Rhythm, Normal S1, S2. No: Murmurs Neurological: Present: GCS=15, Speech Normal Skin: Present: Warm, Dry, Normal Color. No: Rashes Psychiatric: Present: Alert, Oriented x 3 Medical Decision Making ED Course and Treatment: 04/02/19 09:58 Patient is nontoxic well-appearing in no distress. Vital signs are stable. Tylenol Zithromax I advised follow up with primary care physician within the next 2 days. Advised follow-up with ENT specialist within the next 2 days. I advised increase fluids and return if symptoms worsen persist or if new symptoms develop. patient verbalizes understanding of discharge instructions and need for immediate followup. IMPRESSION; cough, nasal congestion Motrin one tablet every 6 hours as needed for pain Zithromax one tablet once daily x4 days FLonase; 2 sprays each nostril once daily. Increase fluids Followup with primary care physician the next 2 days Follow up with the ENT specialist within the next 2 days. Return if symptoms worsen persist or if new symptoms develop - Medication Orders Current Medication Orders: Discontinued Medications Acetaminophen (Tylenol 325mg Tab) 650 mg PO STAT STA Stop: 04/02/19 09:44 Azithromycin (Zithromax) 500 mg PO STAT STA; Protocol Stop: 04/02/19 09:44 Disposition/Present on Arrival - Present on Arrival Any Indicators Present on Arrival: No History of DVT/PE: No History of Uncontrolled Diabetes: No Urinary Catheter: No History of Decub. Ulcer: No History Surgical Site Infection Following: None - Disposition Have Diagnosis and Disposition been Completed?: Yes Diagnosis: Cough, Sore throat Disposition: HOME/ ROUTINE Disposition Time: 09:54 Patient Plan: Discharge Condition: GOOD Discharge Instructions (ExitCare): Cough, Adult (DC), Cough in Adults Additional Instructions: Motrin one tablet every 6 hours as needed for pain/fever reduction Zithromax one tablet once daily x4 days FLonase; 2 sprays each nostril once daily. Increase fluids Followup with the primary care physician the next 2 days Follow up with the ENT specialist within the next 2 days. Return if symptoms worsen persist or if new symptoms develop Prescriptions: Azithromycin [Zithromax] 250 mg PO DAILY #4 tab Fluticasone Nasal [Flonase] 2 spr NS DAILY #1 spr Ibuprofen [Motrin] 600 mg PO Q6H PRN #20 tab PRN Reason: pain/fever reduction Referrals: Dwight Bauman DO [Staff Provider] - Follow up with primary Mckenna Sheppard MD [Medical Doctor] - Follow up with primary [facility] [Outside] - Follow up with primary Forms: [employer] (Austrian), WORK NOTE
== END 2019-04-02 10:10 | disposition home or self-care (01) ==
LOC: ED 09:12
DX: J02.9 Acute pharyngitis, unspecified (principal)